=== PATIENT | female | born 1990 | race Caucasian/White ===

== ENCOUNTER 2017-05-15 12:07 | Emergency (ER) | payer OTHER ==
[2017-05-15 12:19] VITALS: TEMP 97.7; O2SAT 96
[2017-05-15] MEDS ORDERED: IBUPROFEN 600 MG TAB PO ONE (13:01)
[2017-05-15] MEDS ORDERED: SULFAMETHOX/TMP 800/160 MG 1 TAB PO ONE (13:01)
--- NOTE | 2017-05-15 13:01 | EDPHY ---
H & P Time Seen by Provider: 05/15/17 12:27 HPI/ROS: CHIEF COMPLAINT: Pain and swelling between buttocks HISTORY OF PRESENT ILLNESS: 27-year-old female presents with a one-week history of pain and swelling between her buttocks. Onset of mild pain 1 week ago, gradually increasing since then, associated with increasing swelling and redness. Onset of a small amount of drainage yesterday when her boyfriend poked the area with tweezers. No fever and no prior history of similar symptoms. REVIEW OF SYSTEMS: Constitutional: No fever, no chills Eyes: No visual changes ENT: No sore throat Respiratory: No cough, no shortness of breath Cardiac: No chest pain Gastrointestinal: no vomiting, no abdominal pain Genitourinary: no dysuria Musculoskeletal: No leg pain or swelling Skin: No rash Neurological: No headache Psychiatric: No depression Past Medical/Surgical History: Denies Smoking Status: Never smoked Physical Exam: General Appearance: Alert, pleasant Eyes: Pupils equal and round ENT, Mouth: Mucous membranes moist Neck: Normal inspection Respiratory: Lungs are clear to auscultation Cardiovascular: Regular rate and rhythm Gastrointestinal: Abdomen is soft and nontender Buttocks: There is a 5 cm area of swelling, fluctuance and tenderness between the buttocks Neurological: A&O, nonfocal, normal gait Skin: Warm and dry Extremities: normal inspection Psychiatric: Mood and affect normal Constitutional: Initial Vital Signs Temperature (C) 36.5 C 05/15/17 12:17 Heart Rate 91 05/15/17 12:17 Respiratory Rate 18 05/15/17 12:17 Blood Pressure 156/88 H 05/15/17 12:17 O2 Sat (%) 96 05/15/17 12:17 O2 Delivery Mode Room Air Allergies/Adverse Reactions: No Known Allergies Allergy (Unverified 05/15/17 12:16) Home Medications: Medication Instructions Recorded Bcp 05/15/17 Hydrocodone/APAP 5/325 [Gardena 1 - 2 tab PO Q4H PRN #10 tab 05/15/17 5/325 (*)] Sulfamethox/Tmp 800/160 mg 1 tab PO BID #14 tab 05/15/17 [Bactrim Ds] Medical Decision Making Procedures: Procedure: Abscess drainage. This patient has a pilonidal cyst with abscess formation. Risks, benefits, alternatives of incision and drainage discussed with the patient and consent obtained. The abscess was incised with a #11 blade and a large amount of purulent drainage was expressed. The wound was packed. The patient tolerated the procedure well. The procedure was performed by myself. ED Course/Re-evaluation: Ibuprofen and Bactrim orally given prior to discharge. Departure - Departure Disposition: Home, Routine, Self-Care Clinical Impression: Pilonidal cyst with abscess Condition: Good Instructions: Pilonidal Cyst (ED), Incision and Drainage (ED) Additional Instructions: Ibuprofen 600 mg 3 times daily while the pain persists. Keep the packing in place. Please return in 2-3 days to have the packing removed. If you feel that the pain is worsening instead of gradually improving, please return for recheck. Referrals: Nisa Mcnamara [Primary Care Provider] - As per Instructions (Follow-up in 2 days for packing removal.) Prescriptions: Hydrocodone/APAP 5/325 [Gardena 5/325 (*)] 1 - 2 tab PO Q4H PRN #10 tab PRN Reason: Pain, Moderate Sulfamethox/Tmp 800/160 mg [Bactrim Ds] 1 tab PO BID #14 tab
[2017-05-15 13:21] VITALS: BP 146/88; PULSE 96; RESP 16
== END 2017-05-15 13:19 | disposition home or self-care (01) ==
LOC: CED 12:07
PROC: 0JB93ZZ Excision of Buttock Subcutaneous Tissue and Fascia, Percutaneous Approach (ICD-10-PCS; principal; 2017-05-15)
DX: L05.01 Pilonidal cyst with abscess (principal)